=== PATIENT | male | born 1995 | race Caucasian/White ===

== ENCOUNTER 2025-02-22 13:35 | Emergency (ER) | payer BC, MEDICAID ==
[~2025-02-22] VITALS: Ht 172.7 cm; Wt 136.0 kg
[2025-02-22 13:43] VITALS: O2SAT 99
[2025-02-22 14:04] VITALS: BP 176/120; PULSE 113; RESP 16; TEMP 36.5; O2SAT 99
== END 2025-02-22 14:30 | disposition left against medical advice (07) ==
LOC: ER 13:35
DX: R51.9 Headache, unspecified (principal); R07.89 Other chest pain; E11.65 Type 2 diabetes mellitus with hyperglycemia; I10 Essential (primary) hypertension
CPT/HCPCS: 93005; 99283